=== PATIENT | male | born 1955 | race Caucasian/White ===

== ENCOUNTER 2019-03-08 08:10 | Emergency (ER) | payer BC ==
[~2019-03-08] VITALS: Ht 188 cm; Wt 99.8 kg
--- NOTE | 2019-03-08 08:58 | ED Chest Pain ---
General Chief Complaint: Chest Pain Stated Complaint: CHEST PAIN Nursing Triage Note: Patient states he woke at 0600 today with substernal/epigastric chest pain that waxes and wanes, but never completely goes away. Nursing Sepsis Screen: No Definite Risk History of Present Illness Date Seen by Provider: Mar 08, 2019 Time Seen by Provider: 08:30 This is a 63-year-old man with a history of hypertension although not currently taking antihypertensives, here for substernal nonradiating chest discomfort occurring since waking at 6 AM today. It is waxing and waning. Nonexertional. Mild to moderate severity at worst, 4 out of 10 in severity states. He tried to take medicine for heartburn including Tums, this did not help. He has felt the need to belch, hoping that in doing so the discomfort would go away however it persisted. He decided to go to work because it was not particularly concerning but because it kept coming back he decided to come for an evaluation. He had a negative stress test but this was many years ago. His father had heart disease diagnosed in his late 50s but he was also a smoker, otherwise no first-degree relatives with premature CAD or CVA. Patient is not a smoker, no diabetes, no drug use. No paresthesias in the extremities. No shortness of breath. No lightheadedness. No nausea or diaphoresis. Allergies and Home Medications Allergies Coded Allergies: No Known Drug Allergies (Unverified , 03/08/19) Patient Home Medication List Home Medication List Reviewed: Yes Review of Systems Review of Systems Constitutional: no symptoms reported EENTM: No Symptoms Reported Respiratory: No Symptoms Reported Cardiovascular: See HPI Gastrointestinal: See HPI Genitourinary: No Symptoms Reported Musculoskeletal: no symptoms reported Skin: no symptoms reported Psychiatric/Neurological: No Symptoms Reported Endocrine: No Symptoms Reported Hematologic/Lymphatic: No Symptoms Reported Past Xhgpdfo-Znyleg-Sgtajk Hx Past Med/Social Hx: Reviewed Nursing Past Med/Soc Hx Patient Social History Alcohol Use: Occasionally Uses Recreational Drug Use: No Smoking Status: Never a Smoker 2nd Hand Smoke Exposure: No Recent Foreign Travel: No Contact w/Someone Who Travel: No Recent Infectious Disease Expo: No Recent Hopitalizations: No Physical Abuse: No Sexual Abuse: No Mistreated: No Fear: No Seasonal Allergies Seasonal Allergies: No Past Medical History Surgeries: Yes Eye Surgery Respiratory: No Cardiac: Yes High Cholesterol, Hypertension Neurological: No Genitourinary: No Gastrointestinal: No Musculoskeletal: No Endocrine: No HEENT: Yes (right eye) Eye Injury Psychosocial: No Integumentary: No Blood Disorders: No Physical Exam Vital Signs Vital Signs - First Documented Capillary Refill : Less Than 3 Seconds Height, Weight, BMI Height: 6'2.00" Weight: 220lbs. oz. 99.204073xp; BMI Method:Stated General Appearance: No Apparent Distress HEENT: Moist Mucous Membranes, Other (wearing an eye patch over the right eye secondary to mild photophobia related to recent attempted lens transplant procedure) Neck: Supple Respiratory: Lungs Clear Cardiovascular: Regular Rate, Rhythm, Normal Peripheral Pulses Gastrointestinal: No Pulsatile Mass, Non Tender, Soft Neurologic/Psychiatric: Alert, Oriented x3, No Motor/Sensory Deficits, Normal Mood/Affect Skin: Warm/Dry Progress/Results/Core Measures Results/Orders Lab Results Laboratory Tests Test 03/08/19 08:20 03/08/19 11:00 Range/Units White Blood Count 7.4 4.3-11.0 10^3/uL Red Blood Count 4.52 4.35-5.85 10^6/uL Hemoglobin 13.6 13.3-17.7 G/DL Hematocrit 40 40-54 % Mean Corpuscular Volume 89 80-99 FL Mean Corpuscular Hemoglobin 30 25-34 PG Mean Corpuscular Hemoglobin Concent 34 32-36 G/DL Red Cell Distribution Width 13.2 10.0-14.5 % Platelet Count 219 130-400 10^3/uL Mean Platelet Volume 10.1 7.4-10.4 FL Sodium Level 137 135-145 MMOL/L Potassium Level 4.0 3.6-5.0 MMOL/L Chloride Level 100 98-107 MMOL/L Carbon Dioxide Level 20 L 21-32 MMOL/L Anion Gap 17 H 5-14 MMOL/L Blood Urea Nitrogen 22 H 7-18 MG/DL Creatinine 1.02 0.60-1.30 MG/DL Estimat Glomerular Filtration Rate > 60 BUN/Creatinine Ratio 22 Glucose Level 115 H 70-105 MG/DL Calcium Level 9.1 8.5-10.1 MG/DL Corrected Calcium 8.9 8.5-10.1 MG/DL Total Bilirubin 0.3 0.1-1.0 MG/DL Aspartate Amino Transf (AST/SGOT) 12 5-34 U/L Alanine Aminotransferase (ALT/SGPT) 13 0-55 U/L Alkaline Phosphatase 73 40-136 U/L Troponin T 8 7 <=15 NG/L Total Protein 6.8 6.4-8.2 GM/DL Albumin 4.2 3.2-4.5 GM/DL My Orders Orders - WILBERT ARAUJO T DO Chest 1 View Ap/Pa Only (03/08/19 08:47) Ekg Tracing (03/08/19 08:47) Comprehensive Metabolic Panel (03/08/19 08:47) O2 (03/08/19 08:47) Monitor-Rhythm Ecg Trace Only (03/08/19 08:47) Aspirin Chewable Tablet (Baby Aspirin Ch (03/08/19 09:00) Nitroglycerin 0.4 Mg Btl 25's (Nitrostat (03/08/19 09:00) Ed Iv/Invasive Line Start (03/08/19 08:47) Cbc No Diff (03/08/19 08:47) Troponin T (03/08/19 08:47) Lidocaine 2% Viscous 15 Ml (Xylocaine Vi (03/08/19 09:45) Antacid Suspension (Mylanta Suspension (03/08/19 09:45) Us Aorta 18573 (03/08/19 09:54) Troponin T (03/08/19 10:20) Medications Given in ED Current Medications Medications Dose Ordered Sig/Lino Route Start Time Stop Time Status Last Admin Dose Admin Al Hydrox/Mg Hydrox/Simethicone 30 ml ONCE ONCE PO 03/08/19 09:45 03/08/19 09:46 DC 03/08/19 09:45 30 ML Aspirin 324 mg ONCE ONCE PO 03/08/19 09:00 03/08/19 09:01 DC 03/08/19 08:54 324 MG Lidocaine HCl 30 ml ONCE ONCE PO 03/08/19 09:45 03/08/19 09:46 DC 03/08/19 09:45 30 ML Nitroglycerin 0.4 mg UD PRN SL 03/08/19 09:00 03/08/19 08:54 0.4 MG Vital Signs/I&O 03/08/19 03/08/19 08:13 08:13 Temp 97.6 Pulse 62 Resp 18 B/P (MAP) 132/76 (94) Pulse Ox 98 O2 Delivery Room Air Room Air Blood Pressure Mean: 94 Progress Progress Note #1: Progress Note This is a 63-year-old man with waxing and waning nonexertional nonradiating chest discomfort with no associated symptoms. Assuming initial troponin is negative his heart score is 3, including nonspecific T-wave flattening on ECG, age, father having heart disease before age of 65, and including a history of hypertension. His discomfort he states resolved after arriving to the emergency department. We will continue to monitor. We will give a full dose of aspirin, he took 81 mg this morning. I have offered admission for monitoring and stress test as an inpatient, I also discussed the possibility of discharge assuming remaining workup is negative and patient remains asymptomatic, with prompt outpatient cardiology follow-up, and we will make a disposition decision using shared decision making. Progress Note #2: Progress Note I did an abdominal aortic ultrasound given the lower chest/epigastric location of patient's discomfort, despite her not being epigastric tenderness or palpable mass. Patient remained feeling better, improved with a GI cocktail which suggests GI etiology however I still feel it is reasonable that he follow up with cardiology for consideration of outpatient stress testing, I recommended that he call today or tomorrow for the soonest available appointment. He will return for any new or worsening symptoms. EKG : Comment 0812: Sinus meagan rate 59. Nonspecific T-wave flattening in aVL, V2, V3. Delayed precordial R-wave progression. Departure Impression Primary Impression: Chest pain Disposition: 01 HOME, SELF-CARE Condition: Stable Departure-Patient Inst. Referrals: GERALDINE CORREA MD (PCP/Family) Primary Care Physician MILE PEDRAZA MD FACP FAC CCDS Patient Instructions: Chest Pain (DC) WILBERT ARAUJO DO Mar 08, 2019 08:58
[2019-03-08] MEDS ORDERED: NITROGLYCERIN 0.4 MG SL TABS BTL 25'S SL PRN (09:00)
[2019-03-08] MEDS ORDERED: ASPIRIN 81 MG CHEW (CHILDREN'S ASA) PO ONE (09:00)
[2019-03-08 09:04] LABS: HEMOGLOBIN 13.6 G/DL (13.3-17.7); WHITE BLOOD COUNT 7.4 10^3/uL (4.3-11.0)
[2019-03-08 09:05] LABS: MEAN PLATELET VOLUME 10.1 FL (7.4-10.4); RED CELL DISTRIBUTION WIDTH 13.2 % (10.0-14.5)
--- NOTE | 2019-03-08 09:13 | NUR ---
Patient states he is currently pain free after receiving the nitro.
[2019-03-08 09:20] LABS: CARBON DIOXIDE 20 MMOL/L (21-32); CHLORIDE 100 MMOL/L (98-107); SODIUM 137 MMOL/L (135-145)
[2019-03-08 09:21] LABS: ALANINE AMINOTRANSFERASE 13 U/L (0-55); ALBUMIN 4.2 GM/DL (3.2-4.5); ALKALINE PHOSPHATASE 73 U/L (40-136); BILIRUBIN,TOTAL 0.3 MG/DL (0.1-1.0); BUN/CREATININE RATIO 22; CALCIUM 9.1 MG/DL (8.5-10.1); CREATININE SERUM 1.02 MG/DL (0.60-1.30); GFR ESTIMATED > 60; GLUCOSE 115 MG/DL (70-105); TOTAL PROTEIN 6.8 GM/DL (6.4-8.2)
[2019-03-08] MEDS ORDERED: LIDOCAINE 2% VISCOUS 15 ML UDC PO ONE (09:45)
[2019-03-08] MEDS ORDERED: ANTACID SUSP 30 ML UDC (MYLANTA) PO ONE (09:45)
--- NOTE | 2019-03-08 10:07 | Diagnostic Imaging Report ---
INDICATION: Chest pain. No prior examinations are available for comparison. FINDINGS: The heart size, mediastinal configuration, and pulmonary vascularity are within normal limits. There is no pleural effusion, pneumothorax, or pneumonia. The osseous structures are unremarkable. IMPRESSION: No acute cardiopulmonary abnormality. Dictated by: Dictated on workstation # [id number]
--- NOTE | 2019-03-08 11:28 | Diagnostic Imaging Report ---
Indication: Chest pain. Study is limited due to overlying bowel gas. Proximal aorta is 2.2 x 2.2 cm. Mid aorta is 2.4 x 2.5 cm. Distal aorta is 2.0 x 2.2 cm. The iliacs were obscured by bowel gas. Impression: No evidence of abdominal aortic aneurysm. Dictated by: Dictated on workstation # [id number]
[2019-03-08 12:02] VITALS: BP 117/76
== END 2019-03-08 11:50 | disposition home or self-care (01) ==
LOC: EDUNIT# 08:10 → ER FS 08:11
DX: R07.89 Other chest pain (principal); I10 Essential (primary) hypertension; E78.00 Pure hypercholesterolemia, unspecified; Z82.49 Family history of ischemic heart disease and other diseases of the circulatory system
CPT/HCPCS: 36415; 71045; 76775; 80053; 84484; 85027; 93005; 93041

== ENCOUNTER 2019-05-27 10:09 | Emergency (ER) | payer BC ==
[~2019-05-27] VITALS: Ht 188 cm; Wt 99.8 kg
--- OUTSIDE RECORDS SUMMARY | 2019-05-27 10:14 | XMS REPORT | Continuity of Care Document ---
Author Organization Unknown Address Unknown Allergies Active Description Code Type Severity Reaction Onset Reported/Identified Relationship to Patient Clinical Status Yes No Known Drug Allergies [id number] Drug Allergy Unknown N/A 03/08/2019 Medications There is no data. Problems Date Dx Coded Attending Type Code Diagnosis Diagnosed By 03/08/2019 GAYLE HENSLEY, WILBERT T Ot E78.00 PURE HYPERCHOLESTEROLEMIA, UNSPECIFIED 03/08/2019 GAYLE HENSLEY, WILBERT T Ot I10 ESSENTIAL (PRIMARY) HYPERTENSION 03/08/2019 GAYLE HENSLEY, WILBERT T Ot R07.81 PLEURODYNIA 03/08/2019 GAYLE HENSLEY, WILBERT T Ot R07.89 OTHER CHEST PAIN 03/08/2019 GAYLE HENSLEY, WILBERT T Ot Z82.49 FAMILY HX OF ISCHEM HEART DIS AND OTH DI 03/10/2019 GAYLE HENSLEY, WILBERT T Ot E78.00 PURE HYPERCHOLESTEROLEMIA, UNSPECIFIED 03/10/2019 GAYLE HENSLEY, WILBERT T Ot I10 ESSENTIAL (PRIMARY) HYPERTENSION 03/10/2019 GAYLE HENSLEY, WILBERT T Ot R07.81 PLEURODYNIA 03/10/2019 GAYLE HENSLEY, WILBERT T Ot R07.89 OTHER CHEST PAIN 03/10/2019 GAYLE HENSLEY, WILBERT T Ot Z82.49 FAMILY HX OF ISCHEM HEART DIS AND OTH DI 03/14/2019 GAYLE HENSLEY, WILBERT T Ot E78.00 PURE HYPERCHOLESTEROLEMIA, UNSPECIFIED 03/14/2019 GAYLE HENSLEY, WILBERT T Ot I10 ESSENTIAL (PRIMARY) HYPERTENSION 03/14/2019 GAYLE HENSLEY, WILBERT T Ot R07.81 PLEURODYNIA 03/14/2019 GAYLE HENSLEY, WILBERT T Ot R07.89 OTHER CHEST PAIN 03/14/2019 GAYLE HENSLEY, WILBERT T Ot Z82.49 FAMILY HX OF ISCHEM HEART DIS AND OTH DI Procedures There is no data. Results Test Result Range Automated blood complete blood count (hemogram) panel - 03/08/19 08:20 Blood leukocytes automated count (number/volume) 7.4 10*3/uL 4.3-11.0 Blood erythrocytes automated count (number/volume) 4.52 10*6/uL 4.35-5.85 Venous blood hemoglobin measurement (mass/volume) 13.6 g/dL 13.3-17.7 Blood hematocrit (volume fraction) 40 % 40-54 Automated erythrocyte mean corpuscular volume 89 [foz_us] 80-99 Automated erythrocyte mean corpuscular hemoglobin (mass per erythrocyte) 30 pg 25-34 Automated erythrocyte mean corpuscular hemoglobin concentration measurement (mass/volume) 34 g/dL 32-36 Automated erythrocyte distribution width ratio 13.2 % 10.0- 14.5 Automated blood platelet count (count/volume) 219 10*3/uL 130-400 Automated blood platelet mean volume measurement 10.1 [foz_us] 7.4-10.4 Comprehensive metabolic panel - 03/08/19 08:20 Serum or plasma sodium measurement (moles/volume) 137 mmol/L 135-145 Serum or plasma potassium measurement (moles/volume) 4.0 mmol/L 3.6-5.0 Serum or plasma chloride measurement (moles/volume) 100 mmol/L 98-107 Carbon dioxide 20 mmol/L 21-32 Serum or plasma anion gap determination (moles/volume) 17 mmol/L 5-14 Serum or plasma urea nitrogen measurement (mass/volume) 22 mg/dL 7-18 Serum or plasma creatinine measurement (mass/volume) 1.02 mg/dL 0.60-1.30 Serum or plasma urea nitrogen/creatinine mass ratio 22 NRG Serum or plasma creatinine measurement with calculation of estimated glomerular filtration rate > NRG Serum or plasma glucose measurement (mass/volume) 115 mg/dL 70-105 Serum or plasma calcium measurement (mass/volume) 9.1 mg/dL 8.5-10.1 Serum or plasma total bilirubin measurement (mass/volume) 0.3 mg/dL 0.1-1.0 Serum or plasma alkaline phosphatase measurement (enzymatic activity/volume) 73 U/L 40-136 Serum or plasma aspartate aminotransferase measurement (enzymatic activity/volume) 12 U/L 5-34 Serum or plasma alanine aminotransferase measurement (enzymatic activity/volume) 13 U/L 0-55 Serum or plasma protein measurement (mass/volume) 6.8 g/dL 6.4-8.2 Serum or plasma albumin measurement (mass/volume) 4.2 g/dL 3.2-4.5 CALCIUM CORRECTED 8.9 mg/dL 8.5-10.1 TROPONIN T - 03/08/19 08:20 TROPONIN T 8 % <=15 TROPONIN T - 03/08/19 11:00 TROPONIN T 7 % <=15 Encounters ACCT No. Visit Date/Time Discharge Status Pt. Type Provider Facility Loc./Unit Complaint [id number] 03/08/2019 08:11:00 03/08/2019 11:50:00 DIS Emergency WILBERT ARAUJO DO [facility] FS CHEST PAIN
[2019-05-27] MEDS ORDERED: [UNRECOGNIZED DRUG - CODE] PO (10:30)
[2019-05-27] MEDS ORDERED: OLME1TAB24 PO (10:30)
[2019-05-27 10:38] LABS: HEMATOCRIT 42 % (40-54); HEMOGLOBIN 14.3 G/DL (13.3-17.7); MEAN CORPUSCULAR HEMOGLOBIN 30 PG (25-34); MEAN CORPUSCULAR HGB CONC 34 G/DL (32-36); MEAN CORPUSCULAR VOLUME 88 FL (80-99); RED CELL DISTRIBUTION WIDTH 13.3 % (10.0-14.5); WHITE BLOOD COUNT 7.1 10^3/uL (4.3-11.0)
[2019-05-27 10:39] LABS: BASOPHILS % (AUTO) 0 % (0-10); EOSINOPHILS # (AUTO) 0.4 10^3/uL (0.0-0.3); EOSINOPHILS % (AUTO) 6 % (0-10); LYMPHOCYTES # (AUTO) 1.2 X 10^3 (1.0-4.0); LYMPHOCYTES % (AUTO) 17 % (12-44); MEAN PLATELET VOLUME 9.5 FL (7.4-10.4); MONOCYTES # (AUTO) 0.5 X 10^3 (0.0-1.0); MONOCYTES % (AUTO) 8 % (0-12); NEUTROPHILS # (AUTO) 4.8 X 10^3 (1.8-7.8); NEUTROPHILS % (AUTO) 69 % (42-75); PLATELET COUNT 200 10^3/uL (130-400)
--- NOTE | 2019-05-27 10:40 | ED General ---
General Chief Complaint: Dizziness/Syncope Stated Complaint: DIZZINESS Nursing Triage Note: Patient reports that he was laying in bed and blew his nose and then the room began to spin and he became very diaphoretic. Patient reports that he was nauseated and the dizziness is much worse with movement. Nursing Sepsis Screen: No Definite Risk Source of Information: Patient Exam Limitations: No Limitations History of Present Illness Date Seen by Provider: May 27, 2019 Time Seen by Provider: 10:35 Initial Comments Patient blew his nose while laying in bed and became very vertiginous (room was spinning). He became extremely diaphoretic and nauseated. Symptoms have impro diane somewhat. This occurred 30 minutes ago. He is still dizzy with any movement. No chest pain. No headache. Allergies and Home Medications Allergies Coded Allergies: No Known Drug Allergies (Unverified , 03/08/19) Home Medications Meclizine HCl 25 Mg Tablet, 25 MG PO QID PRN for DIZZINESS Prescribed by: SHIV GIORDANO on 05/27/19 1326 Olmesartan/Hydrochlorothiazide 1 Each Tablet, 1 EACH PO DAILY, (Reported) Patient Home Medication List Home Medication List Reviewed: Yes Review of Systems Review of Systems Constitutional: no symptoms reported EENTM: nose congestion Respiratory: no symptoms reported Cardiovascular: no symptoms reported Musculoskeletal: no symptoms reported Psychiatric/Neurological: See HPI; Denies Headache, Denies Numbness, Denies Paresthesia, Denies Seizure All Other Systems Reviewed Negative Unless Noted: Yes Past Xopdvsx-Ozxzoy-Csvvld Hx Patient Social History Alcohol Use: Denies Use Recreational Drug Use: No Smoking Status: Never a Smoker 2nd Hand Smoke Exposure: No Recent Foreign Travel: No Contact w/Someone Who Travel: No Recent Infectious Disease Expo: No Recent Hopitalizations: No Physical Abuse: No Sexual Abuse: No Seasonal Allergies Seasonal Allergies: No Past Medical History Surgeries: Yes Eye Surgery Respiratory: No Cardiac: Yes High Cholesterol, Hypertension Neurological: No Genitourinary: No Gastrointestinal: No Musculoskeletal: No Endocrine: No HEENT: Yes (right eye) Eye Injury Psychosocial: No Integumentary: No Blood Disorders: No Physical Exam Vital Signs Vital Signs - First Documented 05/27/19 10:23 Temp 95.6 Pulse 57 Resp 14 B/P (MAP) 124/78 (93) Pulse Ox 97 O2 Delivery Room Air Capillary Refill : Less Than 3 Seconds Height, Weight, BMI Height: 6'2.00" Weight: 220lbs. oz. 99.032175oo; BMI Method:Stated General Appearance: No Apparent Distress, WD/WN Eyes: Right Eye Other (right pupil 5 mm and nonreactive (postsurgical). Left pupil reactive) HEENT: Normal ENT Inspection, Pharynx Normal Neck: Full Range of Motion, Normal Inspection, Supple; No Carotid Bruit Respiratory: Lungs Clear, Normal Breath Sounds Cardiovascular: Regular Rate, Rhythm, No Edema Gastrointestinal: Normal Bowel Sounds, No Organomegaly Extremity: Normal Inspection, Normal Range of Motion Neurologic/Psychiatric: Alert, Oriented x3, No Motor/Sensory Deficits, Normal Mood/Affect; No Motor Weakness, No Sensory Deficit Skin: Normal Color, Damp Progress/Results/Core Measures Suspected Sepsis Recent Fever Within 48 Hours: No Infection Criteria Present: None New/Unexplained Altered Menta: No Sepsis Screen: No Definite Risk SIRS Temperature:95.6 Pulse: 57 Respiratory Rate: 14 Laboratory Tests 05/27/19 10:20: White Blood Count 7.1 Blood Pressure 124 /78 Mean: 93 Laboratory Tests 05/27/19 10:20: Creatinine 1.20, Platelet Count 200, Total Bilirubin 0.6 Results/Orders Lab Results Laboratory Tests Test 05/27/19 10:20 Range/Units White Blood Count 7.1 4.3-11.0 10^3/uL Red Blood Count 4.79 4.35-5.85 10^6/uL Hemoglobin 14.3 13.3-17.7 G/DL Hematocrit 42 40-54 % Mean Corpuscular Volume 88 80-99 FL Mean Corpuscular Hemoglobin 30 25-34 PG Mean Corpuscular Hemoglobin Concent 34 32-36 G/DL Red Cell Distribution Width 13.3 10.0-14.5 % Platelet Count 200 130-400 10^3/uL Mean Platelet Volume 9.5 7.4-10.4 FL Neutrophils (%) (Auto) 69 42-75 % Lymphocytes (%) (Auto) 17 12-44 % Monocytes (%) (Auto) 8 0-12 % Eosinophils (%) (Auto) 6 0-10 % Basophils (%) (Auto) 0 0-10 % Neutrophils # (Auto) 4.8 1.8-7.8 X 10^3 Lymphocytes # (Auto) 1.2 1.0-4.0 X 10^3 Monocytes # (Auto) 0.5 0.0-1.0 X 10^3 Eosinophils # (Auto) 0.4 H 0.0-0.3 10^3/uL Basophils # (Auto) 0.0 0.0-0.1 10^3/uL Sodium Level 140 135-145 MMOL/L Potassium Level 4.3 3.6-5.0 MMOL/L Chloride Level 102 98-107 MMOL/L Carbon Dioxide Level 26 21-32 MMOL/L Anion Gap 12 5-14 MMOL/L Blood Urea Nitrogen 17 7-18 MG/DL Creatinine 1.20 0.60-1.30 MG/DL Estimat Glomerular Filtration Rate > 60 BUN/Creatinine Ratio 14 Glucose Level 163 H 70-105 MG/DL Calcium Level 9.3 8.5-10.1 MG/DL Corrected Calcium 9.4 8.5-10.1 MG/DL Magnesium Level 1.9 1.8-2.4 MG/DL Total Bilirubin 0.6 0.1-1.0 MG/DL Aspartate Amino Transf (AST/SGOT) 18 5-34 U/L Alanine Aminotransferase (ALT/SGPT) 17 0-55 U/L Alkaline Phosphatase 77 40-136 U/L Troponin I < 0.30 <0.30 NG/ML Total Protein 6.4 6.4-8.2 GM/DL Albumin 3.9 3.2-4.5 GM/DL My Orders Orders - SHIV GIORDANO MD Cbc With Automated Diff (05/27/19 10:28) Comprehensive Metabolic Panel (05/27/19 10:28) Magnesium (05/27/19 10:28) Ekg Tracing (05/27/19 10:28) Troponin I (05/27/19 10:33) Ondansetron Injection (Zofran Injectio (05/27/19 10:45) Meclizine Tablet (Antivert Tablet) (05/27/19 10:45) Ct Head Wo (05/27/19 10:33) Ct Angio Head/Neck (05/27/19 11:06) Iohexol Injection (Omnipaque 350 Mg/Ml 1 (05/27/19 11:15) Received Contrast (Hold Metformin- Contr (05/27/19 11:15) Sodium Chloride Flush (Catheter Flush Sy (05/27/19 11:15) Ns (Ivpb) (Sodium Chloride 0.9% Ivpb Bag (05/27/19 11:15) Medications Given in ED Current Medications Medications Dose Ordered Sig/Lino Route Start Time Stop Time Status Last Admin Dose Admin Iohexol 100 ml ONCE ONCE IV 05/27/19 11:15 05/27/19 11:16 DC 05/27/19 12:10 75 ML Meclizine HCl 25 mg ONCE ONCE PO 05/27/19 10:45 05/27/19 10:46 DC 05/27/19 11:18 25 MG Ondansetron HCl 4 mg ONCE ONCE IVP 05/27/19 10:45 05/27/19 10:46 DC 05/27/19 11:00 4 MG Sodium Chloride 10 ml NEEDED PRN IV 05/27/19 11:15 05/27/19 13:45 DC 05/27/19 12:10 10 ML Sodium Chloride 100 ml ONCE ONCE IV 05/27/19 11:15 05/27/19 11:16 DC 05/27/19 12:10 80 ML Vital Signs/I&O 05/27/19 05/27/19 10:23 13:33 Temp 95.6 Pulse 57 59 Resp 14 19 B/P (MAP) 124/78 (93) 114/80 (91) Pulse Ox 97 95 O2 Delivery Room Air Capillary Refill : Less Than 3 Seconds Blood Pressure Mean: 93 Progress Note : Time: 13:23 Progress Note Test results discussed the patient. He feels much better. Currently asymptomatic. CTA of head and neck was normal. Suspect peripheral vertigo. Prescribe Antivert ECG Initial ECG Impression Time: 10:39 Initial ECG Rhythm: S.Cash Initial ECG Intervals: Normal Initial ECG Impression: Normal Departure Impression Primary Impression: Vertigo Disposition: 01 HOME, SELF-CARE Condition: Stable Departure-Patient Inst. Decision time for Depature: 13:24 Referrals: GERALDINE CORREA MD (PCP/Family) Primary Care Physician Patient Instructions: Vertigo (a Type of Dizziness) (DC) Add. Discharge Instructions: Rest today and tomorrow. No sudden movements. Meclizine for symptoms. See your doctor next week for follow-up. All discharge instructions reviewed with patient and/or family. Voiced understanding. Scripts Meclizine HCl (Meclizine HCl) 25 Mg Tablet 25 MG PO QID PRN for DIZZINESS, #20 TAB Prov: SHIV GIORADNO MD 05/27/19 SHIV GIORDANO MD May 27, 2019 10:40
[2019-05-27] MEDS ORDERED: MECLIZINE 25 MG (ANTIVERT) TAB PO ONE (10:45)
[2019-05-27] MEDS ORDERED: ONDANSETRON 4 MG/2 ML (SDV) Z0FRAN IVP ONE (10:45)
[2019-05-27 10:56] LABS: CHLORIDE 102 MMOL/L (98-107); POTASSIUM 4.3 MMOL/L (3.6-5.0); SODIUM 140 MMOL/L (135-145)
[2019-05-27 10:57] LABS: ALANINE AMINOTRANSFERASE 17 U/L (0-55); ALBUMIN 3.9 GM/DL (3.2-4.5); ALKALINE PHOSPHATASE 77 U/L (40-136); BILIRUBIN,TOTAL 0.6 MG/DL (0.1-1.0); BUN/CREATININE RATIO 14; CALCIUM 9.3 MG/DL (8.5-10.1); CARBON DIOXIDE 26 MMOL/L (21-32); GFR ESTIMATED > 60; GLUCOSE 163 MG/DL (70-105); MAGNESIUM 1.9 MG/DL (1.8-2.4); TOTAL PROTEIN 6.4 GM/DL (6.4-8.2)
--- NOTE | 2019-05-27 11:10 | Diagnostic Imaging Report ---
PROCEDURE: CT head without contrast. TECHNIQUE: Multiple contiguous axial images were obtained through the brain without the use of intravenous contrast. Auto Exposure Controls were utilized during the CT exam to meet ALARA standards for radiation dose reduction. INDICATION: Vertigo, nausea, dizziness, diaphoresis. COMPARISON: None. FINDINGS: The ventricles and cortical sulci appear age-appropriate. There is no midline shift or mass effect. No acute intracranial hemorrhage is seen. There is no CT evidence of acute territorial ischemia. The calvarium appears intact. There is mucosal thickening in the bilateral ethmoid sinuses with a small fluid level in the left maxillary sinus; however, the paranasal sinuses are incompletely included on this exam. IMPRESSION: 1. No acute intracranial hemorrhage or CT evidence of acute territorial ischemia. 2. Mucosal thickening and fluid level in the paranasal sinuses, may be due to sinusitis. Dictated by: Dictated on workstation # [id number]
[2019-05-27] MEDS ORDERED: HOLD METFORMIN - RECEIVED CONTRAST 20 ML VIAL IV SCH (11:15)
[2019-05-27] MEDS ORDERED: CATHETER FLUSH 10 ML SYR IV PRN (11:15)
[2019-05-27] MEDS ORDERED: IOHEXOL 350 MG/ML 100 ML (OMNIPAQUE 350) VIAL IV ONE (11:15)
[2019-05-27] MEDS ORDERED: NS 100 ML (IVPB) BAG IV ONE (11:15)
--- NOTE | 2019-05-27 11:47 | NUR ---
Patient up to bedside commode at this time. Patient transferred self with stand by assist. denies nausea or dizziness at this time.
--- NOTE | 2019-05-27 12:51 | Diagnostic Imaging Report ---
PROCEDURE: CT angiography of the head and CT angiography of the neck with and without contrast. TECHNIQUE: Contiguous noncontrast images were obtained from the skull base through the vertex. After intravenous contrast administration, helical CT angiography of the neck was performed. Source data was reformatted into multiple MIP projections. Delayed post contrast acquisition was also obtained. Auto Exposure Controls were utilized during the CT exam to meet ALARA standards for radiation dose reduction. INDICATION: Dizziness. Diaphoretic. Nausea. FINDINGS: There are normal origins of the brachiocephalic vessels. The carotid arteries are widely patent bilaterally with no significant stenosis or vessel irregularity is seen. No dissection is evident. The vertebral arteries are patent with no stenosis or dissection evident. The distal internal carotid and vertebral arteries are patent as is the basilar artery. There is no evidence for aneurysm, AVM, neovascularity or major vessel occlusion. Ventricles are normal in size, shape and position. There is no acute parenchymal hemorrhage, edema or mass. There is no extra-axial mass or hemorrhage. There is no abnormal enhancement. IMPRESSION: CT angiography of the head and neck shows no significant abnormality with no hemodynamically significant stenoses seen. There are no dissections. No occlusions are seen. Dictated by: Dictated on workstation # [id number]
[2019-05-27] MEDS ORDERED: MECL-106 PO (13:26)
[2019-05-27 13:33] VITALS: BP 114/80
== END 2019-05-27 13:45 | disposition home or self-care (01) ==
LOC: EDUNIT# 10:09 → ER FS 10:11
DX: R42 Dizziness and giddiness (principal); I10 Essential (primary) hypertension; E78.00 Pure hypercholesterolemia, unspecified
CPT/HCPCS: 36415; 70450; 70496; 70498; 80053; 83735; 84484; 85025; 93005; 96374

== ENCOUNTER 2021-10-14 05:41 | Outpatient (CLI) | payer MEDICARE ==
[~2021-10-14] VITALS: Ht 188 cm; Wt 112.0 kg
[~2021-10-14 05:41] MED LIST: MECL-149 PO; OLME1TAB24 PO; [UNRECOGNIZED DRUG - CODE] PO
[2021-10-14] MEDS ORDERED: ALBU0.63 IH (08:51)
[2021-10-14] MEDS ORDERED: PANT40TA52 PO (08:51)
[2021-10-14] MEDS ORDERED: PRED5DRO24 OP (08:51)
[2021-10-14] MEDS ORDERED: BENZ200C51 PO (08:51)
[2021-10-14] MEDS ORDERED: ATOR10TA66 PO (08:51)
== END 2021-10-14 11:36 | disposition home or self-care (01) ==
LOC: PREOP 05:41
PROVIDERS: ATTEND Surgery
DX: Z01.818 Encounter for other preprocedural examination (principal)

== ENCOUNTER → 2021-10-17 | Outpatient (CLI) | payer MEDICARE ==
[~2021-10-17] MED LIST changes: +ALBU0.63 IH; +ATOR10TA66 PO; +BENZ200C51 PO; +PANT40TA52 PO; +PRED5DRO24 OP
== END ==
LOC: LAB FS 10:13
PROVIDERS: ATTEND Surgery
DX: Z01.812 Encounter for preprocedural laboratory examination (principal); R13.10 Dysphagia, unspecified; Z20.822 Contact with and (suspected) exposure to COVID-19
CPT/HCPCS: 87635

== ENCOUNTER 2021-10-20 07:56 | Day surgery (SDC) | payer MEDICARE, OTHER ==
[~2021-10-20] VITALS: Ht 188 cm; Wt 112.0 kg
[2021-10-20] MEDS ORDERED: LACTATED RINGERS 1,000 ML IV ONE (08:07)
[2021-10-20] MEDS ORDERED: LACTATED RINGERS 1,000 ML IV STA (08:12)
[2021-10-20] MEDS ORDERED: HURRICAINE EXT TUBE (BENZOCAINE) XX PRN (08:15)
[2021-10-20 08:19] VITALS: BP 133/87
--- NOTE | 2021-10-20 08:20 | Progress Note-Pre Operative ---
Pre-Operative Progress Note H&P Reviewed The H&P was reviewed, patient examined and no changes noted. Time Seen by Provider: 08:08 Date H&P Reviewed: Oct 20, 2021 Time H&P Reviewed: 08:08 Pre-Operative Diagnosis: Cough, Dysphagia MICHAELA BAKER DO Oct 20, 2021 08:20
[2021-10-20] MEDS ORDERED: proPOfol 200 MG/20 ML (DIPRIVAN) VIAL IV ONE (08:28)
--- NOTE | 2021-10-20 08:46 | Progress Note-Post Operative ---
Post-Operative Progess Note Surgeon (s)/Certified Nurses Aide (s) Surgeon MICHAELA BAKER DO Certified Nurses Aide: none Pre-Operative Diagnosis Cough, Dysphagia Post-Operative Diagnosis Gastritis Hiatal Hernia Procedure & Operative Findings Date of Procedure 10/20/21 Procedure Performed/Findings EGD with bx PROCEDURE NOTE: After informed consent was obtained, the patient was brought to the endoscopy suite, placed in bed in left lateral decubitus position. He was administered IV sedation by the BLAST FURNACE CHECKER who then monitored vitals the entire time, heart rate, blood pressure and pulse ox and the scope was inserted down the mouth through the esophagus into the stomach. On the way down, noted some mild esophagitis and pushed into the stomach, pushed past the antrum into the duodenum. Duodenum looked good. Pulled back and did a biopsy of antrum, then retroflexed the scope, saw small hiatal hernia, took a picture of this and then pulled the scope into the GE junction. Then did a biopsy of the GE junction. Pushed the scope back into the stomach, suctioned all the air out of the stomach. At this point pulled the scope up the esophagus and out the mouth. The patient tolerated the procedure, and he recovered in endoscopy suite. Anesthesia Type IV sedation by BLAST FURNACE CHECKER Estimated Blood Loss Estimated blood loss (mL): scant Specimens/Packing Specimens Removed antral bx body of stomach bx GE jxn bx MICHAELA BAKER DO Oct 20, 2021 08:46
--- NOTE | 2021-10-20 08:47 | Endoscopy Discharge Instruct ---
Endo Procedure/Findings Findings 1.: Gastritis 2.: Hiatal Hernia Discharge Instructions - Activity: You might feel a little sleepy until tomorrow. This is due to the medicine you received to relax you. Until tomorrow, you should: NOT drive a car, operate machinery or power tools. NOT drink any alcoholic beverages. NOT make any important decisions or sign importortant papers. Do not return to work until tomorrow, unless otherwise instructed. Resume previous activities tomorrow. Diet: Start by taking liquids. If you tolerate liquids, advance to solid food. 1.: EGD in 3 years Notify Physician - If you experience excessive bleeding, unusual abdominal pain, fever, or chest pain, contact your doctor immediately. MICHAELA BAKER DO Oct 20, 2021 08:47
[2021-10-20 08:49] VITALS: BP 105/64
[2021-10-20 08:50] VITALS: BP 103/55
[2021-10-20 09:15] VITALS: BP 115/58
[2021-10-20 09:20] VITALS: BP 115/58
--- NOTE | 2021-10-20 09:34 | Anesthesia-General Post-Op ---
MAC Patient Condition Mental Status/LOC: Same as Preop Cardiovascular: Satisfactory Nausea/Vomiting: Absent Respiratory: Satisfactory Pain: Controlled Complications: Absent Post Op Complications Complications None Follow Up Care/Instructions Patient Instructions None needed. Anesthesiology Discharge Order Discharge Order Patient was seen after the procedure and he was doing well, no complaints, stable vital signs, no apparent adverse anesthesia problems. CAROLE GOLDSTEIN DO Oct 20, 2021 09:34
== END 2021-10-20 09:20 | disposition home or self-care (01) ==
LOC: ENDO 07:56
PROVIDERS: ATTEND Surgery
DX: K29.50 Unspecified chronic gastritis without bleeding (principal); K20.90 Esophagitis, unspecified without bleeding; R05.9 Cough, unspecified; K44.9 Diaphragmatic hernia without obstruction or gangrene; I10 Essential (primary) hypertension; E78.5 Hyperlipidemia, unspecified; E66.9 Obesity, unspecified; Z68.32 Body mass index [BMI] 32.0-32.9, adult; Z79.899 Other long term (current) drug therapy
CPT/HCPCS: 88305

== ENCOUNTER → 2022-09-04 | Outpatient (CLI) | payer MEDICARE ==
[~2022-09-04] MED LIST changes: +OLME-40 PO; -OLME1TAB24 PO
--- NOTE | 2022-09-04 10:03 | Diagnostic Imaging Report ---
PROCEDURE: CT abdomen and pelvis without contrast. TECHNIQUE: Multiple contiguous axial images were obtained through the abdomen and pelvis without the use of intravenous contrast. Auto Exposure Controls were utilized during the CT exam to meet ALARA standards for radiation dose reduction. INDICATION: Left lower quadrant pain and left flank pain for 3 weeks. No prior studies are available for comparison. The lung bases are clear. There is a low density but solid-appearing mass in the right lobe of the liver measuring approximately 6.8 cm. No other liver lesions are seen. Gallbladder is unremarkable. There is no biliary ductal dilatation. Pancreas and spleen are unremarkable. No adrenal mass is detected. No renal calculi or hydronephrosis is detected. Aorta is nonaneurysmal. The bowel loops are normal caliber. Occasional diverticula within the sigmoid are noted but no evidence of acute diverticulitis. No free fluid or fluid collection is seen. Bladder is decompressed. Prostate is unremarkable. There is a fat-containing left inguinal hernia. IMPRESSION: 1. Solid appearing right lobe liver mass, indeterminate. Multiphase CT or liver MRI would be recommended for further characterization. 2. No evidence of urinary tract calculi or obstruction. 3. Uncomplicated diverticulosis. Dictated by: Dictated on workstation # [id number]
== END ==
LOC: RAD FS 08:18
PROVIDERS: ATTEND Family Medicine
DX: K57.30 Diverticulosis of large intestine without perforation or abscess without bleeding (principal)
CPT/HCPCS: 74176

== ENCOUNTER → 2022-09-14 | Outpatient (CLI) | payer MEDICARE ==
[~2022-09-14] MED LIST changes: +CATHETER FLUSH 10 ML SYR IV PRN; +HOLD METFORMIN - RECEIVED CONTRAST 20 ML VIAL IV SCH; +IOHEXOL 350 MG/ML 100 ML (OMNIPAQUE 350) VIAL IV ONE; +NS 100 ML (IVPB) BAG IV ONE
[2022-09-14 09:08] LABS: POTASSIUM 4.2 MMOL/L (3.6-5.0)
[2022-09-14 09:09] LABS: BILIRUBIN,TOTAL 0.5 MG/DL (0.1-1.0); CALCIUM 9.2 MG/DL (8.5-10.1); CREATININE SERUM 1.14 MG/DL (0.60-1.30); TOTAL PROTEIN 7.1 GM/DL (6.4-8.2)
[2022-09-14 09:10] LABS: ALBUMIN 4.2 GM/DL (3.2-4.5)
--- NOTE | 2022-09-14 11:20 | Diagnostic Imaging Report ---
PROCEDURE: CT abdomen with contrast only. TECHNIQUE: Multiple contiguous axial images were obtained through the abdomen after the administration of intravenous contrast. Auto Exposure Controls were utilized during the CT exam to meet ALARA standards for radiation dose reduction. INDICATION: Followup liver lesion. COMPARISON: CT abdomen and pelvis without contrast on 09/04/2022. FINDINGS: The heart is unremarkable. The lung bases are clear. Stable size of the lesion within the right hepatic lobe. This demonstrates nodular peripheral enhancement with filling on delayed images, consistent with benign hemangioma. No other suspicious liver lesions are identified. The portal vein is patent. The gallbladder is unremarkable. The spleen, pancreas, adrenal glands, and kidneys have a normal appearance. There is no pathologically enlarged mesenteric or retroperitoneal adenopathy. The included bowel loops are nondilated. There is no free fluid or free air. No acute osseous abnormalities. IMPRESSION: 1. Findings consistent with benign hemangioma in the right hepatic lobe. No other suspicious focal hepatic lesions are seen. No further followup is recommended regarding this benign lesion. Dictated by: Dictated on workstation # [id number]
== END ==
LOC: LAB FS 08:16
PROVIDERS: ATTEND Family Medicine
DX: K76.89 Other specified diseases of liver (principal); I10 Essential (primary) hypertension; R93.5 Abnormal findings on diagnostic imaging of other abdominal regions, including retroperitoneum
CPT/HCPCS: 36415; 74160; 80053; Q9967

== ENCOUNTER → 2022-12-08 | Outpatient (CLI) | payer MEDICARE ==
[~2022-12-08] MED LIST changes: -CATHETER FLUSH 10 ML SYR IV PRN; -HOLD METFORMIN - RECEIVED CONTRAST 20 ML VIAL IV SCH; -IOHEXOL 350 MG/ML 100 ML (OMNIPAQUE 350) VIAL IV ONE; -NS 100 ML (IVPB) BAG IV ONE
== END ==
LOC: CARDFS 08:46
PROVIDERS: ATTEND Family Medicine
DX: I10 Essential (primary) hypertension (principal)
CPT/HCPCS: 93306

== ENCOUNTER → 2023-02-23 | Outpatient (CLI) | payer MEDICARE ==
[~2023-02-23] VITALS: Ht 187 cm; Wt 113.0 kg
[~2023-02-23] MED LIST changes: +CATHETER FLUSH 10 ML SYR IVP PRN; +REGADENOSON 0.4 MG/5 ML SYR (LEXISCAN) IV ONE
[2023-02-23 13:00] VITALS: BP 131/79
== END ==
LOC: CARD 11:14
PROVIDERS: ATTEND Nurse Practitioner Family
DX: R06.09 Other forms of dyspnea (principal)
CPT/HCPCS: 78452; 93017; A9502

== ENCOUNTER → 2023-03-24 | Outpatient (CLI) | payer MEDICARE ==
[~2023-03-24] MED LIST changes: -CATHETER FLUSH 10 ML SYR IVP PRN; +HOLD METFORMIN - RECEIVED CONTRAST 20 ML VIAL IV SCH; +IOHEXOL 350 MG/ML 100 ML (OMNIPAQUE 350) VIAL IV ONE; +NS 100 ML (IVPB) BAG IV ONE; -REGADENOSON 0.4 MG/5 ML SYR (LEXISCAN) IV ONE; +RT-ALBUTEROL SULF 2.5 MG/3 ML PRE-MIX VIAL INH ONE
[2023-03-24 08:39] LABS: CREATININE SERUM 1.32 MG/DL (0.60-1.30)
--- NOTE | 2023-03-24 09:37 | Diagnostic Imaging Report ---
PROCEDURE: CT angiography of the chest with contrast. TECHNIQUE: Multiple contiguous axial images were obtained through the chest after uneventful bolus administration of intravenous contrast. 3D reconstructed CTA MIP acquisitions were also performed. Auto Exposure Controls were utilized during the CT exam to meet ALARA standards for radiation dose reduction. INDICATION: Shortness of air. COMPARISON: No prior studies are available for comparison. FINDINGS: Evaluation of the pulmonary arterial system is without evidence of thromboembolism. No filling defects are seen within central, lobar, or segmental branches. The thoracic aorta is of normal caliber. There is no pericardial or pleural fluid. There is some linear atelectasis in the right lower lobe; otherwise, the lungs are clear. No nodules or masses are seen. The upper abdomen again demonstrates a right hepatic mass, previously shown to represent a hemangioma. No other abnormalities are seen. IMPRESSION: No evidence of pulmonary embolism. No acute feature in the chest is identified. Dictated by: Dictated on workstation # [id number]
== END ==
LOC: RAD 08:02
PROVIDERS: ATTEND Nurse Practitioner Family
DX: R06.09 Other forms of dyspnea (principal); R06.02 Shortness of breath
CPT/HCPCS: 36415; 71275; 82565; 84520; 94060; 94726; 94729